=== PATIENT | female | born 1950 | race Hispanic/Latino ===

== ENCOUNTER → 2018-02-08 | Outpatient (CLI) | payer OTHER ==
--- NOTE | 2018-02-08 11:46 | Diagnostic Imaging Report ---
Exam: Lumbar spine AP lateral and oblique and sacrum 2 views History: Pain Comparison: None. Findings: No acute fracture. Bone demineralization. Multilevel degenerative endplate change with mild narrowing at L4-5 and L5-S1. Hypertrophic facet arthrosis L3-L4 through L5-S1. Impression: No acute osseous abnormality Lumbar spondyloarthropathy most prominent at L4-5 L5-S1. Signed by: Dr. Jesse Woods M.D. on 02/08/2018 11:43 AM
== END ==
LOC: RAD 10:45
PROVIDERS: ATTEND Internal Medicine
DX: M47.817 Spondylosis without myelopathy or radiculopathy, lumbosacral region (principal)
CPT/HCPCS: 72110; 72220